=== PATIENT | male | born 1990 | race Caucasian/White ===

== ENCOUNTER → 2016-08-05 | Outpatient (CLI) | payer OTHER ==
--- NOTE | 2016-08-05 11:06 | NUR ---
EVAL 2 HRS. Client was referred by court for A/D eval. He completed testing and interview. See eval for recommendations.
--- NOTE | 2016-08-12 09:46 | CDE ---
ADMIT: 08/05/2016 RM/LOC: [facility] MR#: [id number] [facility] [address] [place] [phone] PHILIP KEATING [address] [place] [address] Chemical Dependency Evaluation SEX: M AGE: 26 : 1990 A. DEMOGRAPHICS: NAME: Philip Keating. DATE OF : 1990 EVALUATING COUNSELOR: ANNELIESE Rosenberg, [facility] DATE OF EVALUATION: 08/05/2016 B. PRESENTING PROBLEM/CHIEF COMPLAINT: The client reports he has been referred by the flower pot press operator as well as his criminal defense attorney, Dez Lemon, with case pending. He indicates he was initially fined for possession of marijuana during an incident when a friend was at his house who had a warrant for unpaid fines. He reports he was later charged with providing false information on a document which was related to the purchase permit that he completed for a firearm. The charge has been reduced at this time to an attempted false information. Client is completing a pre-sentence investigation with probation and has sentencing scheduled for August 20. C. MEDICAL HISTORY: This client does not report any illnesses, accidents, injuries, or operations. He is not presently under a doctor's care nor currently taking any medication other than multivitamins, fish oil, and B12. Client reports his last dental exam was a year ago and his left eye exam 2 months ago. He reports seasonal allergies. The client does not indicate ever having a traumatic brain injury. This client does not indicate any recent changes in appetite or weight and there are no other reported health concerns at this time. D. WORK/SCHOOL/ HISTORY: Client graduated high school. He is considering obtaining his real estate license in the future. He denied any problems at school related to alcohol or drugs. 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 Client also was employed through [employer] for 6 months but was laid off when that company changed hands. He indicates he currently works 40 hours per week. He denies ever missing work or losing a job due to alcohol or drug use. This client has never been in the . E. ALCOHOL/DRUG ASSESSMENT SUMMARY: ALCOHOL: Client reported first use of alcohol was at age 20. He was vague and evasive in terms of pattern of use stating he drinks a couple drinks occasionally. When asked to be more specific, he did indicate on average consuming alcohol 2 times per month, consuming 2 drinks per occasion. He states he likes red beer and Cheladas. He indicates the most he ever drank was on his 23st birthday, but he was unable to provide a quantity. He denies becoming sick from drinking at that time. He reports his last use of alcohol was 3-4 weeks ADMIT: 08/05/2016 RM/LOC: [facility] MR#: [id number] [id number] [id number] PHILIP KE[address] [place] [address] Chemical Dependency Evaluation SEX: M AGE: 26 : 1990 ago when he consumed 2 drinks. MARIJUANA: Client reported first use of marijuana was at age 20. Again he was vague about pattern of use, indicating he smokes a couple of hits occasionally. When asked to be more specific, he indicates that it varies. He will smoke anywhere from 2-3 times a week to 2-3 times every 3-4 months. He reports his last use of marijuana was 1-1/2 to 2 weeks ago when he smoked 2 hits. COCAINE: Denies. AMPHETAMINES: Denies. HALLUCINOGENS: Denies. HEROIN: Denies. PRESCRIPTION DRUGS: Denies. OTHER DRUGS (INHALANTS, OVER THE COUNTER, ETC): Denies. NICOTINE: Client reported began smoking at age 20. He states he smokes at work and in his car, but not at home. He will occasionally chew it at it house, may be 2-3 times per week. This client denies any consequences related to alcohol or drug use other than the legal charge that brought him here at this time. Upon discussion, it is also noted the client had a driving under the influence of alcohol in 2010. He denies any gambling. This client responded no to all the questions on the chemical dependency diagnostics. He did admit that he felt guilty about having received a DUI in 2010. He reports that he did go to detox following that DUI. He stated at that time, he had an evaluation by a male counselor on [address] whom his aunt had referred him to, possibly Florentino Shaffer. He did attend AA that time. This client denies any IV drug use. There is no other reported treatment history. F. LEGAL HISTORY: Client indicated in 2010 he was charged with driving under the influence and served 3 weekends in shelter as he had a job at that time. He is unable to provide his blood alcohol concentration at the time of arrest, but he indicated it was not an aggravated in excess of 0.15. In 2015, the client was charged with possession of marijuana, got a ticket and paid the fine. In 2016, he was notified of the charges of the attempt to provide false information which is pending court on August 20. G. FAMILY/SOCIAL/PEER HISTORY: Client reports he was raised by his biological parents in [place]. He reports a good family upbringing. His parents but he denies effect on him. He states he has a good relationship with both parents. He lived with his dad after parents . He stated his father was involved in a car accident approximately 10 years ago which left him a quadriplegic. 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 Client reports punishments growing up were grounding. He is unsure of his worst memory. Best memory of childhood is not having responsibilities and he felt safest with parents and grand parents. This ADMIT: 08/05/2016 RM/LOC: [facility] MR#: [id number] [id number] [facility] [address] [place], [place] [phone] PHILIP KEATING [address] [place] [address] Chemical Dependency Evaluation SEX: M AGE: 26 : 1990 client has never been and has no children. He reports in high school, he did have a girlfriend for approximately 2-1/2 to 3 years, but she was older than him and he stated they parted ways. He is not currently in a relationship. This client is the only child of his parents. He does have a half brother and they have the same mom and he has a half sister with the same dad. He stated those half siblings lived with their other parents. This client denies any physical or sexual abuse. He reports spending time with both users and non-users of alcohol and drugs. He denies any gang involvement. This client reports recreational activities to include disc golf, flag football and basketball, but do not include the use of alcohol or drugs. He also enjoys movies and TV shows and admits that sometimes these includes the use of alcohol or drugs. He does feel that he is physically out of shape and does not get enough physical activity or exercise. This client does report a belief in God or a higher power. He does not belong to a particular taoist. He has experienced family or losses. H. PSYCHIATRIC/BEHAVIORAL HISTORY: This client denies any thoughts or attempts of suicide. He is not considering it at this time and there is no reported family history of suicide. He indicates he has never received any inpatient or outpatient treatment for mental health or behavioral problems. I. COLLATERAL INFORMATION: This client did agree to sign a release of information to his dad, however, no contact as of this time has been made. J. OTHER DIAGNOSTIC/SCREENING TOOLS - SCORE RESULTS: THE DRINKER TYPE RATING: Is a measure of how the client perceives their own drinking and/or using. This rating is indicative of how resistant or accepting the person is to the drinking problem. The client chose their rating from the following classifications: ALCOHOL Total Abstainer Light Social (non-problem) Drinker Moderate Social (non-problem) Drinker User Heavy Social (non-problem)Drinker Problem Drinker Alcoholic OTHER DRUG Nonuser Light Social (non-problem) User Moderate Social (non-problem)User Heavy Social (non-problem) User ADMIT: 08/05/2016 RM/LOC: [facility] MR#: [id number] [address] [id number] PHILIP KEATING [address] [place] [address] Chemical Dependency Evaluation SEX: M AGE: 26 : 1990 Problem User Addicted/Dependent On the drinker type rating, this client rates himself as a light social non-problem drinker and a light social non-problem user. SUBSTANCE ABUSE SUBTLE SCREENING INVENTORY (SASSI): The SASSI is an assessment tool specifically designed to provide a clearer picture of what lies beneath the facade presented by most patients or clients. Scores on this assessment aid in distinguishing nonabusers from abusers, alcoholics from drug abusers and nondefensive clients from defensive ones. The incorporation of a "denial scale" further enhances the ability to make an accurate recommendation. Client scores are: Face Valid Alcohol (FVA): 3. Face Valid Other Drugs (FVOD): 1. Symptoms (SYM): 1. Obvious Attributes (OAT): 5. Subtle Attributes (SAT): 4. Defensiveness (DEF): 7. Supplemental Addiction Measure (IRAIS): 6. Family versus Controls (FAM): 8. Correctional (COR): 3. Random Answering Pattern (RAP): 0. These scores would indicate the client as having a low probability of having a substance use disorder. Client's face valid Alcohol and Drug scores are extremely low and inconsistent with alcohol and drug-related charges. The client's defensiveness scale is 7 which is elevated, but not elevated to 8 which would have made it inconclusive. We administered the ASI. Please see attached summary sheet. K. CLINICAL IMPRESSION: Based on the information presented by the client, he does not appear to meet DSM-5 criteria for a substance use disorder diagnosis. Client indicates strength to be people skills, knowledge, nice and gets along with everyone, responsible and has a good brain. Client does not identify any weakness. The client is neat in appearance. He is friendly and cooperative throughout the interview except for being vague and evasive about chemical history and appears to deny and minimize his use of substances L. RECOMMENDATIONS PRESENTED TO CLIENT: It is recommended that this client participate in a drug education class to ADMIT: 08/05/2016 RM/LOC: [facility] MR#: [id number] [address] [place] [id number] PHILIP KE[address] [place] [address] Chemical Dependency Evaluation SEX: M AGE: 26 : 1990 provide him with additional information such as the classes offered through the [facility] on Alcoholism and Addiction. If this client would have any future alcohol or drug-related problems, he would need to be re- evaluated at that time. The client has a history of alcohol related arrest as well as the possession of marijuana charge recently. ASA CLINICAL ASSESSMENT CRITERIA: Low/Medium/High Dimension 1 = Intoxication and Withdrawal (i.e. history of withdrawal, level of current use): Low. Dimension 2 = Medical (i.e. , diabetes, medications, chronic conditions): Low. Dimension 3 = Emotional/Behavior Conditions (i.e. psych history, impulsivity, depression, anxiety, trauma history): Low. Dimension 4 = Treatment Acceptance/Resistance (i.e. past history, minimization/blame, acknowledgement of problem, pressure to seek treatment, does not feel they have a problem): High. Dimension 5 = Relapse Potential (i.e. inability to abstain, use despite consequences, significant preoccupation, relapse despite outpatient treatment attempts): High. Dimension 6 = Recovery/Living Environment (i.e. current users reside in environment, family attitude, lack of consistent adult support in living environment, high exposure to using in social/work environment): High. CRIMINOGENIC RISK FACTORS: Low/Moderate/High Antisocial Attitudes: Moderate. Antisocial Peers: Moderate. Self Control Skills: [id number]. Family Dysfunction: [id number]. Past Criminality: [id number]. ANNELIESE Rosenberg, TRUDY/ rosalie JOB #: [id number]
== END | disposition home or self-care (01) ==
LOC: ADTC.GI 08:14
DX: F12.20 Cannabis dependence, uncomplicated (principal)